=== PATIENT | female | born 1990 | race African-American/Black ===

== ENCOUNTER 2016-11-24 12:54 | Emergency (ER) | payer OTHER ==
[~2016-11-24] VITALS: Ht 165.1 cm; Wt 104.3 kg
[2016-11-24] MEDS ORDERED: KURVELO1 EACH PO (14:02)
[2016-11-24 14:15] LABS: URINE BILIRUBIN NEGATIVE (Negative); URINE BLOOD NEGATIVE (Negative); URINE COLOR YELLOW; URINE GLUCOSE-RANDOM* NEGATIVE (Negative); URINE KETONES NEGATIVE (Negative); URINE NITRITE NEGATIVE (Negative); URINE PROTEIN (DIPSTICK) NEGATIVE (Negative); URINE SPECIFIC GRAVITY <= 1.005 (1.003-1.035); URINE UROBILINOGEN 0.2 E.U./dl (0.2-1.0)
[2016-11-24 14:32] LABS: SQUAMOUS 0-3 Few /LPF (0-3); URINE RBC None Seen /HPF (0-2); URINE WBC 0-5 Rare /HPF (0-5)
[2016-11-24 14:33] LABS: CASTS None Seen /LPF (None Seen); CRYSTALS None Seen /LPF (None Seen)
[2016-11-24 14:50] LABS: HEMATOCRIT 38.9 % (37.0-47.0); HEMOGLOBIN 13.4 gm/dL (12.0-15.0); MCHC 34.3 g/dL (28.0-37.0); MCV 87.5 fL (80.0-100.0); RBC 4.45 mil/uL (4.20-5.00); RDW 14.2 % (10.5-14.5); WBC 4.5 thou/uL (4.0-11.0)
[2016-11-24 14:59] LABS: CALCIUM 9.3 mg/dL (8.5-10.1); CREATININE 0.8 mg/dL (0.6-1.0)
[2016-11-24] MEDS ORDERED: NAPROSYN500 MG PO (15:21)
[2016-11-24] MEDS ORDERED: BUTALB-APAP-CA1 EACH PO (15:21)
[2016-11-24 16:47] VITALS: BP 154/70
== END 2016-11-24 16:51 | disposition home or self-care (01) ==
LOC: ER 12:54
PROVIDERS: Emergency Medicine
DX: R51 Headache (principal); R04.0 Epistaxis; J45.909 Unspecified asthma, uncomplicated